=== PATIENT | female | born 1935 | race American Indian/Alaskan Native ===

== ENCOUNTER 2017-07-06 14:43 | Outpatient (CLI) | payer MEDICARE | END 2017-07-06 14:44 | disposition home or self-care (01) | LOC: LABHHL 14:43 | PROVIDERS: ATTEND Surgery | DX: D05.12 Intraductal carcinoma in situ of left breast (principal); N64.1 Fat necrosis of breast | CPT/HCPCS: 88305; 88361 ==

== ENCOUNTER 2017-07-20 14:43 | Outpatient (CLI) | payer MEDICARE ==
--- NOTE | 2017-07-21 14:09 | Magnetic Resonance Report ---
BILATERAL BREAST MRI WITHOUT AND WITH CONTRAST: 07/20/17 14:43:00 CLINICAL: Newly diagnosed left breast cancer. Status post left stereotactic biopsy for calcifications 07/06/17 with pathologic diagnosis of DCIS. Additional segmental calcifications of the inner left breast have an intermediate suspicion of malignancy. COMPARISON:07/06/17, 06/13/17, 06/05/17, 11/24/16 and 06/16/16 mammograms. TECHNIQUE: Axial 1.0-mm T1 without, axial high resolution 2.0-mm T2 and axial 1.0-mm dynamic Vibrant high-resolution postcontrast T1 fat saturation sequences on a 1.5 Yen magnet. The examination was performed with an 8 channel dedicated [place] breast coil. Post processing with CAD and subtraction was performed on an Intent workstation. 12.0 cc of Multihance was injected without incident for the contrast portion of the exam. Consent was obtained prior to the administration of the contrast. FINDINGS: Right: Minimal background parenchymal enhancement. No mass or suspicious enhancement. No suspicious lymph nodes. Left: Minimal background parenchymal enhancement. A post biopsy seroma at 10 o'clock 3.5 cm from the nipple measures 2.6 x 2.1 x 4.2 cm. A localizer clip is identified at the margin of the seroma. Mild benign enhancement at the margin of the seroma. A second seroma is located cephalad to the larger seroma and it measures 1.4 x 0.8 x 0.7 cm. No mass or suspicious enhancement. No non-Mass enhancement to correlate with calcifications on the mammogram. No suspicious lymph nodes. IMPRESSION: Known left breast cancer and no additional suspicious lesion of either breast. No suspicious lymph nodes. Recommend management of left breast calcifications based on the mammographic features. RIGHT BI-RADS 1 -- Negative LEFT BI-RADS 6 -- Known Cancer
== END 2017-07-20 14:44 | disposition home or self-care (01) ==
LOC: SPVIMAG 14:43
PROVIDERS: ATTEND Surgery
DX: C50.112 Malignant neoplasm of central portion of left female breast (principal); N64.89 Other specified disorders of breast
CPT/HCPCS: 0159T; A9577; C8908; 77059

== ENCOUNTER 2017-08-07 13:00 | Outpatient (CLI) | payer MEDICARE ==
--- NOTE | 2017-08-07 15:47 | Mammography Report ---
Stereotactic biopsy of the left breast, marker placement, specimen mammography, 2 view mammogram: Indeterminate focal calcifications adjacent to a previous biopsy site with residual hematoma are targeted with a medial approach. The skin was cleansed and 1% lidocaine used for local anesthesia. 8 cores were obtained around the clock using an 8-gauge biopsy needle. Specimen mammography demonstrated calcifications in 3 cores. A marker was left in place. Manual pressure successfully mild post procedure bleeding. A bandage was applied. Followup mammography confirmed that the targeted calcifications were removed and the marker successfully placed. There is a small hematoma at the targeted site. The patient was discharged following instructions.
--- NOTE | 2017-08-07 15:54 | History and Physical Report ---
History of Present Illness Date of examination: 08/07/17 Chief complaint: susp. lt breast calcs
--- NOTE | 2017-08-07 15:56 | Procedure Note ---
Date of procedure: 08/07/17 Pre-op diagnosis: susp. lt breast calcs Post-op diagnosis: same Procedure: stereo bx Findings: calcs Anesthesia: local Surgeon: OZ MURDOCK Estimated blood loss: minimal Pathology: list (lt breast tissue) Specimen disposition: to lab Condition: stable Disposition: same day
== END 2017-08-07 13:01 | disposition home or self-care (01) ==
LOC: SPVWC 13:00
PROVIDERS: ATTEND Surgery
DX: C50.112 Malignant neoplasm of central portion of left female breast (principal)
CPT/HCPCS: 19081; 88305; 88342; 88361; A4648; G0206